=== PATIENT | female | born 1985 | race Caucasian/White ===

== ENCOUNTER 2024-01-09 12:51 | Emergency (ER) | payer MEDICAID ==
[~2024-01-09] VITALS: Ht 175.3 cm; Wt 104.0 kg
[2024-01-09 12:57] VITALS: O2SAT 98
[2024-01-09] MEDS ORDERED: LIDOCAINE 5% PATCH TOP STA (14:54)
[2024-01-09] MEDS ORDERED: HYDROCODONE/ACETAMINOPHEN 5/325MG TABLET PO ONE (15:00)
[2024-01-09] MEDS ORDERED: ONDANSETRON 4MG ODT PO ONE (15:00)
[2024-01-09] MEDS ORDERED: IBUP-2029 MT (16:33)
[2024-01-09] MEDS ORDERED: METH-773 MT (16:33)
[2024-01-09] MEDS: HYDROCODONE/ACETAMINOPHEN 5/325MG TABLET PO NR (16:45)
[2024-01-09] MEDS: ONDANSETRON 4MG ODT PO NR (17:00)
[2024-01-09] MEDS: LIDOCAINE 5% PATCH TOP NR (17:00)
[2024-01-09 18:15] VITALS: BP 124/81; PULSE 79; RESP 18; TEMP 36.89184; O2SAT 99
== END 2024-01-09 18:16 | disposition home or self-care (01) ==
LOC: ER 12:51
DX: G89.29 Other chronic pain (principal); M54.50 Low back pain, unspecified; F41.9 Anxiety disorder, unspecified; Z98.890 Other specified postprocedural states
CPT/HCPCS: 99284; 81025; Q0162